=== PATIENT | female | born 1960 | race Caucasian/White ===

== ENCOUNTER 2019-06-04 16:18 | Inpatient (IN) | payer MEDICARE, MEDICAID ==
[~2019-06-04] VITALS: Ht 162.6 cm; Wt 77.6 kg
[2019-06-04] MEDS ORDERED: VALP250S4 PO (16:45)
[2019-06-04] MEDS ORDERED: CLOZ50TA14 PO (16:45)
[2019-06-04] MEDS ORDERED: ACET-868 PO (16:45)
[2019-06-04] MEDS ORDERED: LACT10SO PO (16:45)
[2019-06-04 18:43] LABS: CALCIUM, SERUM 8.9 mg/dL (8.5-10.1); CARBON DIOXIDE 27 mmol/L (21-32); CHLORIDE 106 mmol/L (98-107); CREATININE 0.6 mg/dL (0.6-1.3); GLUCOSE 87 mg/dL (74-106); POTASSIUM 4.3 mmol/L (3.5-5.1); SODIUM SERUM 141 mmol/L (136-145); UREA NITROGEN, BLOOD 21 mg/dL (7-18)
[2019-06-04 18:49] LABS: ALANINE AMINOTRANSFERASE 24 U/L (12-78); ALBUMIN 3.2 g/dL (3.4-5.0); ALKALINE PHOSPHATASE 115 U/L (46-116); ASPARTATE AMINOTRANSFERASE 20 U/L (15-37); BILIRUBIN,DIRECT 0.1 mg/dL (0.0-0.2); BILIRUBIN,TOTAL 0.2 mg/dL (0.2-1.0); TOTAL PROTEIN, SERUM 6.6 g/dL (6.4-8.2)
[2019-06-04 19:08] LABS: BASOPHILS % (AUTO) 0.4 % (0.0-2.0); EOSINOPHILS % (AUTO) 0.1 % (0.0-6.0); HEMATOCRIT 38 % (33-45); HEMOGLOBIN 12.7 g/dL (11.5-14.8); LYMPHOCYTES # (AUTO) 2.8 /CMM (0.8-4.8); LYMPHOCYTES % (AUTO) 39.5 % (20.0-44.0); MEAN CORPUSCULAR HGB CONC 33 g/dl (31.0-36.0); MEAN CORPUSCULAR VOLUME 85 fL (82-100); MONOCYTES # (AUTO) 0.6 /CMM (0.1-1.30); MONOCYTES % (AUTO) 7.7 % (2.0-12.0); NEUTROPHILS # (AUTO) 3.8 /CMM (1.8-8.9); NEUTROPHILS % (AUTO) 52.3 % (43.0-81.0); PLATELET COUNT (AUTO) 183 /CMM (150-450); RED BLOOD CELL COUNT(AUTO) 4.48 MIL/uL (4.0-5.2); WHITE BLOOD COUNT (AUTO) 7.2 K/uL (4.3-11.0)
--- NOTE | 2019-06-04 19:08 | NUR ---
PT BEV FROM [facility] C/O UNSTABLE GAIT LEANING MORE ON THE R SIDE PER REPORT STARTED 2 DAYS AGO. PT AAOX1, VSS AT THIS TIME, RR EVEN AND UNLABORED ON RA W AND NOTED. PT CONNECTED TO THE PROGRAM MANAGER ENVIRONMENTAL PLANNING AND POX
--- NOTE | 2019-06-04 19:23 | NUR ---
CALLED [facility] PAGED NHUNG
--- NOTE | 2019-06-04 19:29 | NUR ---
REPORT RECEIVED FROM AUGIE CHASE
[2019-06-04 20:13] LABS: APPEARANCE,URINE Clear (CLEAR); BILIRUBIN,URINE Negative (NEGATIVE); BLOOD, URINE Negative Ery/uL (NEGATIVE); COLOR,URINE Yellow (YELLOW); KETONES,URINE 15 (NEGATIVE); LEUKOCYTE ESTERASE ,URINE Negative (NEGATIVE); NITRITE, URINE Negative (NEGATIVE); PH,URINE 5.5 (5.0-8.0); PROTEIN,URINE Negative (NEGATIVE); UGLUCOSE Negative (NEGATIVE); UROBILINOGEN,URINE 0.2 EU/dL (0.2)
--- NOTE | 2019-06-04 20:28 | NUR ---
BED ASSIGNMENT 326-2
[2019-06-04 20:43] LABS: BACTERIA,URINE None seen /HPF (None Seen); RBC,URINE 0-2 /HPF (0-2); SQUAMOUS EPITHELIAL CELL,UR Few /HPF (None Seen); WBC,URINE 0-2 /HPF (0-3)
--- NOTE | 2019-06-04 21:08 | NUR ---
REPORT GIVEN TO AUGIE CHAUDHARI
[2019-06-04] MEDS ORDERED: Z GUARD REMEDY 2 OZ OINT TP PRN (21:30)
[2019-06-04] MEDS ORDERED: MAGNESIUM HYDROXIDE 30 ML UDC PO PRN (21:30)
[2019-06-04] MEDS ORDERED: MAG HYDROX/AL HYDROX/SIMETH 30 ML UDC PO PRN (21:30)
[2019-06-04] MEDS ORDERED: ACETAMINOPHEN 325 MG TABLET PO PRN (21:30)
[2019-06-04] MEDS ORDERED: HYDROCODONE/APAP 5/325MG 1 EACH TABLET PO PRN (21:30)
[2019-06-04] MEDS ORDERED: ONDANSETRON HCL/PF 4 MG/2 ML VIAL IVP PRN (21:30)
--- NOTE | 2019-06-04 21:35 | NUR ---
PT TRANSFERRED TO ROOM IN STABLE CONDITION
[2019-06-04 21:45] VITALS: BP 136/84
--- NOTE | 2019-06-04 22:30 | NUR ---
RN NOTES ADMITTED PT FROM ED DUE TO UNSTEADY GAIT, LEANING TOWARDS RIGHT SIDE, TO RULE OUT CVA/TIA. FROM [facility], ALERT AND ORIENTED X1, DEMENTIA, CHRONIC KIDNEY DISEASE, SCHIZOPHRENIA, MUMBLING, SPEAKS FEW WORDS, LIP SMACKING, TAKING PSYCHOTROPICS. STABLE ON ROOM AIR, NOT IN APPARENT PAIN. NIHSS AND INITIAL SWALLOW EVAL PERFORMED, UNABLE TO FOLLOW COMMANDS, UNABLE TO ASSESS FOR NIHSS. SWALLOW EVAL DONE, ALSO UNABLE TO FOLLOW COMMANDS, ABLE TO DRINK SPOONFUL OF THIN LIQUID, UNABLE TO USE STRAW, ABLE TO SWALLOW APPLE SAUCE, DIET REGULAR WITH PUREED TEXTURE. RIGHT FOOT IV LINE, NS AT 75 ML/HR, SKIN INTACT, NO BEHAVIOR DISTURBANCE, KEPT SAFE, CALL LIGHT WITHIN REACH
[2019-06-04] MEDS: ASPIRIN 325 MG TABLET PO SCH (22:54)
[2019-06-04] MEDS: IV NS 0.9% 1,000 ML IV PRN (23:16)
[2019-06-05] VITALS (7 sets, daily range): BP systolic 106–118; BP diastolic 51–83
--- NOTE | 2019-06-05 06:50 | NUR ---
RN NOTES PM SHIFT ALERT AND AWAKE, STABLE ON ROOM AIR, NO COMPLAIN OF PAIN, UNABLE TO FOLLOW SIMPLE COMMANDS, ASPIRATION PRECAUTION, ON PUREED DIET, TOLERATED THIN LIQUID WHEN GIVEN WITH SPOON. ECHO DONE, EF > 55%, IVF AT 75 ML/HR, MONITOR RENAL FUNCTION, FOR NEURO CONSULT WITH DR. SEYMOUR
--- NOTE | 2019-06-05 07:45 | NUR ---
TELE/RN NOTE THE PATIENT IS RECEIVED IN BED. PATIENT IS ALERT AND ORIENTED X1. IN ROOM AIR AND DENIES SOB. RESPIRATION REGULAR AND UNLABORED. DENIES PAIN. THE PATIENT IS IN NO APPARENT DISTRESS. RIGHT FOOT G 22 PATENT AND NS INFUSING AT 75ML/HR AND NO S/S INFILTRATION NOTED. BED LOW AND LOCKED. SIDE RAILS UP X3. CALL LIGHT WITHIN REACH. WILL CONTINUE TO MONITOR.
[2019-06-05] MEDS: LACTULOSE 10 G/15 ML UDC (PYXIS) PO SCH ×2 (08:56→18:05)
[2019-06-05] MEDS: VALPROIC ACID 250 MG/5 ML UDC PO SCH (08:56)
[2019-06-05] MEDS: ASPIRIN 325 MG TABLET PO SCH (08:57)
[2019-06-05] MEDS: CLOZAPINE 100 MG TABLET PO SCH ×2 (08:58→18:06)
[2019-06-05 09:23] LABS: BASOPHILS % (AUTO) 0.2 % (0.0-2.0); EOSINOPHILS % (AUTO) 0.1 % (0.0-6.0); HEMATOCRIT 39 % (33-45); HEMOGLOBIN 13.1 g/dL (11.5-14.8); LYMPHOCYTES # (AUTO) 2.4 /CMM (0.8-4.8); LYMPHOCYTES % (AUTO) 28.6 % (20.0-44.0); MEAN CORPUSCULAR HGB CONC 34 g/dl (31.0-36.0); MEAN CORPUSCULAR VOLUME 86 fL (82-100); MONOCYTES # (AUTO) 0.7 /CMM (0.1-1.30); MONOCYTES % (AUTO) 7.9 % (2.0-12.0); NEUTROPHILS # (AUTO) 5.3 /CMM (1.8-8.9); NEUTROPHILS % (AUTO) 63.2 % (43.0-81.0); PLATELET COUNT (AUTO) 179 /CMM (150-450); RED BLOOD CELL COUNT(AUTO) 4.52 MIL/uL (4.0-5.2); WHITE BLOOD COUNT (AUTO) 8.3 K/uL (4.3-11.0)
[2019-06-05 09:37] LABS: CALCIUM, SERUM 8.3 mg/dL (8.5-10.1); CREATININE 0.7 mg/dL (0.6-1.3); MAGNESIUM 2.1 mg/dL (1.8-2.4); PHOSPHORUS 2.6 mg/dL (2.5-4.9); POTASSIUM 4.2 mmol/L (3.5-5.1)
--- NOTE | 2019-06-05 18:13 | NUR ---
MS/RN NOTE THE PATIENT IS ALERT AND ORIENTED X1 WITH EPISODES OF RESISTING CARE. IN ROOM AIR AND OXYGEN SATURATION IS AT 95%. RESPIRATION REGULAR AND UNLABORED. PATIENT WITH NO MANIFESTATION OF PAIN/DISCOMFORT. RIGHT FOOT G 22 PATENT AND NS INFUSING AT 75ML/HR AND NO S/S INFILTRATION NOTED. BED LOW AND LOCKED. SIDE RAILS UP X3. CALL LIGHT WITHIN REACH. WILL ENDORSE TO ASSOCIATE MEDIA DIRECTOR.
[2019-06-05] MEDS: IV NS 0.9% 1,000 ML IV PRN (18:17)
--- NOTE | 2019-06-05 19:50 | NUR ---
MS RN NOTE: PATIENT RESTING IN BED, NO ACUTE DISTRESS NOTED. BREATHING EVEN AND UNLABORED, NO SOB NOTED. IV TO RIGHT FOOT IN PLACE. BED LOCKED AND IN LOWEST POSITION, CALL LIGHT IN REACH. WILL CONTINUE TO MONITOR.
[2019-06-05] MEDS: ATORVASTATIN 10 MG TABLET PO SCH (21:13)
--- NOTE | 2019-06-06 03:10 | NUR ---
MS RN NOTE: PATIENT SLEEPING IN BED, NO ACUTE DISTRESS NOTED. BREATHING EVEN AND UNLABORED, NO SOB NOTED. BED LOCKED AND IN LOWEST POSITION, CALL LIGHT IN REACH. WILL CONTINUE TO MONITOR.
--- NOTE | 2019-06-06 06:15 | NUR ---
MS RN NOTE: PATIENT RESTING IN BED, NO ACUTE DISTRESS NOTED. BREATHING EVEN AND UNLABORED, NO SOB NOTED. IV TO RIGHT FOOT IN PLACE. BED LOCKED AND IN LOWEST POSITION, CALL LIGHT IN REACH. WILL ENDORSE TO DAY NURSE TO CONTINUE WITH PLAN OF CARE.
[2019-06-06 08:00] VITALS: BP 104/67
--- NOTE | 2019-06-06 08:00 | NUR ---
MS RN NOTES PATIENT IN BED RESTING NO SOB OR ACUTE DISTRESS NOTED. PATIENT RESPONDS TO NAME. PATIENT SPEECH IS GARBLED WHICH IS PATIENTS BASELINE. PERIPHERAL IV NOTED ON RIGHT FOOT. INTACT PATENT. BED IN LOW LOCKED POSITION. CALL LIGHT WITHIN REACH. WILL CONTINUE TO MONITOR.
[2019-06-06 08:56] LABS: POTASSIUM 4.3 mmol/L (3.5-5.1)
[2019-06-06 09:10] LABS: BASOPHILS # (AUTO) 0.1 /CMM (0.0-0.2); BASOPHILS % (AUTO) 0.9 % (0.0-2.0); EOSINOPHILS % (AUTO) 0.1 % (0.0-6.0); HEMATOCRIT 37 % (33-45); HEMOGLOBIN 12.3 g/dL (11.5-14.8); LYMPHOCYTES # (AUTO) 2.5 /CMM (0.8-4.8); LYMPHOCYTES % (AUTO) 34.9 % (20.0-44.0); MEAN CORPUSCULAR HGB CONC 33 g/dl (31.0-36.0); MEAN CORPUSCULAR VOLUME 85 fL (82-100); MONOCYTES # (AUTO) 0.6 /CMM (0.1-1.30); MONOCYTES % (AUTO) 8.3 % (2.0-12.0); NEUTROPHILS # (AUTO) 4.1 /CMM (1.8-8.9); NEUTROPHILS % (AUTO) 55.8 % (43.0-81.0); PLATELET COUNT (AUTO) 149 /CMM (150-450); RED BLOOD CELL COUNT(AUTO) 4.42 MIL/uL (4.0-5.2); WHITE BLOOD COUNT (AUTO) 7.3 K/uL (4.3-11.0)
[2019-06-06 09:14] LABS: CALCIUM, SERUM 7.9 mg/dL (8.5-10.1); CREATININE 0.5 mg/dL (0.6-1.3); MAGNESIUM 2.1 mg/dL (1.8-2.4); PHOSPHORUS 3.1 mg/dL (2.5-4.9)
[2019-06-06] MEDS: VALPROIC ACID 250 MG/5 ML UDC PO SCH (09:30)
[2019-06-06] MEDS: LACTULOSE 10 G/15 ML UDC (PYXIS) PO SCH ×2 (09:31→16:21)
[2019-06-06] MEDS: CLOZAPINE 100 MG TABLET PO SCH ×2 (09:31→16:21)
[2019-06-06] MEDS: ASPIRIN 325 MG TABLET PO SCH (09:31)
[2019-06-06] MEDS: IV NS 0.9% 1,000 ML IV PRN ×2 (09:49→21:00)
--- NOTE | 2019-06-06 14:22 | NUR ---
Social service consult requested by MD for stroke protocol. Per chart review and MD notes, pt is a 58-year-old female with history of dementia, CKD, DJD, psychosis, anemia. She was transferred from [facility] due to increased leaning on her right side noted right-sided weakness. PROJECT BUYER met with the pt bedside to complete PhQ-9 intervention. Pt is alert and oriented x 1. Pt is unable to provide any information and participate due to her dementia and cognition. Pt's emergency contact is Nam Sanders . Per briefcase sewer Niki's notes, pt is on a bed hold at her SNF and will be accepted back once medically cleared. No other social service needs are requested at this time. PROJECT BUYER is available, if needed.
--- NOTE | 2019-06-06 15:11 | NUR ---
MS RN NOTES NEW PERIPHERAL IV STARTED ON LEFT UPPER ARM G. 20 WITH GOOD BLOOD RETURN. WILL CONTINUE TO MONITOR.
[2019-06-06 16:00] VITALS: BP 156/74
--- NOTE | 2019-06-06 18:01 | NUR ---
MS RN NOTES PATIENT IN BED RESTING NO SOB OR ACUTE DISTRESS NOTED. ALL DUE MEDICATIONS ADMINISTERED. ALL NEEDS MET. NO ACUTE CHANGES NOTED DURING SHIFT. WILL ENDORSE CARET TO PM SHIFT.
[2019-06-06 20:00] VITALS: BP 105/73
[2019-06-06] MEDS: ATORVASTATIN 10 MG TABLET PO SCH (21:00)
--- NOTE | 2019-06-06 22:00 | NUR ---
MS RN NOTES STROKE SCALE AND SWALLOW EVAL PERFORMED NO SIGNIFICANT CHANGE FROM PREVIOUS STROKE ASSESSMENT. PATIENT ABLE TO EAT AND SWALLOW PUREE FOOD AND LIQUIDS WITHOUT DIFFICULTY OR COUGHING. WILL CONT TO MONITOR.
--- NOTE | 2019-06-07 06:37 | NUR ---
MS RN PM CLOSING NOTES PATIENT IN BED RESTING. PATIENT IS ALERT DOES NOT SEEM TO BE IN ANY APPARENT DISTRESS. NO SOB NOTED BREATHING IS EVEN AND UNLABORED ON ROOM AIR. PATIENT WAS TRANSFERRED FROM ROOM 326 BED TO AND IS NOW IN 309 BED 1. IVF INFUSING TO NORBERTO 20 GAUGE WITH NO S/S OF INFILTRATIONS. WILL ENDORSE CARE TO AM SHIFT.
--- NOTE | 2019-06-07 07:30 | NUR ---
MS/RN - Assessment Patient is in bed, awake, alert to self, no s/s of pain pain, afebrile, no apparent distress, stable on room air. Skin is intact. Labs reviewed, no critical results noted. Fall and aspiration precautions maintained. Possible discharge to [facility] today. Will continue with current medical management.
[2019-06-07 08:00] VITALS: BP 104/71
[2019-06-07 08:00] LABS: EOSINOPHILS % (AUTO) 0.1 % (0.0-6.0); HEMATOCRIT 40 % (33-45); HEMOGLOBIN 13.3 g/dL (11.5-14.8); LYMPHOCYTES # (AUTO) 2.1 /CMM (0.8-4.8); LYMPHOCYTES % (AUTO) 38.1 % (20.0-44.0); MEAN CORPUSCULAR HGB CONC 33 g/dl (31.0-36.0); MEAN CORPUSCULAR VOLUME 85 fL (82-100); MONOCYTES # (AUTO) 0.4 /CMM (0.1-1.30); MONOCYTES % (AUTO) 6.8 % (2.0-12.0); PLATELET COUNT (AUTO) 174 /CMM (150-450); RED BLOOD CELL COUNT(AUTO) 4.75 MIL/uL (4.0-5.2); WHITE BLOOD COUNT (AUTO) 5.5 K/uL (4.3-11.0)
[2019-06-07] MEDS: CLOZAPINE 100 MG TABLET PO SCH (08:37)
[2019-06-07] MEDS: LACTULOSE 10 G/15 ML UDC (PYXIS) PO SCH ×2 (08:37→16:54)
[2019-06-07] MEDS: ASPIRIN 325 MG TABLET PO SCH (08:37)
[2019-06-07] MEDS: VALPROIC ACID 250 MG/5 ML UDC PO SCH (08:37)
[2019-06-07 08:38] LABS: CALCIUM, SERUM 8.5 mg/dL (8.5-10.1); CREATININE 0.6 mg/dL (0.6-1.3); MAGNESIUM 2.3 mg/dL (1.8-2.4); PHOSPHORUS 3.6 mg/dL (2.5-4.9); POTASSIUM 4.3 mmol/L (3.5-5.1)
[2019-06-07 08:42] LABS: CHOLESTEROL 158 mg/dL (<200); HDL CHOLESTEROL 70 mg/dL (40-60); LDL 74 mg/dL (0-99); TRIGLYCERIDES 45 mg/dL (30-150)
[2019-06-07] MEDS ORDERED: ATOR10TA PO (12:37)
[2019-06-07] MEDS ORDERED: ASPI-1169 PO (12:37)
[2019-06-07] MEDS ORDERED: CLOZAPINE 25 MG TABLET PO SCH (17:00)
[2019-06-07] MEDS ORDERED: CLOZAPINE 100 MG TABLET PO SCH (17:00)
[2019-06-07 17:14] VITALS: BP 102/56
--- NOTE | 2019-06-07 17:25 | NUR ---
MS/RN - Discharge Patient is alert to self, remain afebrile, calm, cooperative, discharged to [facility] in stable condition. Reviewed discharge instructions with AUGIE Baugh ([phone]) and he verbalized full understanding and all questions answered to his satisfaction. All belongings sent with the patient. VSS, no s/s of pain, no apparent distress seen. No fall/injury during hospital stay. Patient refused discharge photo, skin is intact. Peripheral IV removed on the NORBERTO with catheter tip intact, no redness, no swelling at the site. Discharge papers sent with ambulance crew. Endorsed accordingly.
== END 2019-06-07 17:00 | DRG 885 ==
LOC: ER 16:21 → TELE 20:47 → MED 06-05 08:42
PROVIDERS: ADMIT Internal Medicine; ATTEND Nurse Practitioner Acute Care
DX: F29 Unspecified psychosis not due to a substance or known physiological condition (principal); N17.0 Acute kidney failure with tubular necrosis; G93.40 Encephalopathy, unspecified; G24.01 Drug induced subacute dyskinesia; E66.9 Obesity, unspecified; Z68.29 Body mass index [BMI] 29.0-29.9, adult; M19.90 Unspecified osteoarthritis, unspecified site; F03.90 Unspecified dementia, unspecified severity, without behavioral disturbance, psychotic disturbance, mood disturbance, and anxiety; D64.9 Anemia, unspecified; Z88.0 Allergy status to penicillin; N18.9 Chronic kidney disease, unspecified
CPT/HCPCS: 36415; 70450-TC; 70551-TC; 71045-TC; 80048-TC; 80061-TC; 80076-TC; 81000-TC; 83735-TC; 84100-TC; 84484-TC; 85025-TC; 87081-TC; 92611-TC; 93307-TC; 97110-TC; 97112-TC; 97530-TC; G0378; J7030